=== PATIENT | female | born 1975 | race Caucasian/White ===

== ENCOUNTER 2018-04-02 20:36 | Emergency (ER) | payer OTHER ==
[~2018-04-02] VITALS: Ht 170.2 cm; Wt 117.9 kg
[~2018-04-02 20:36] MED LIST: ACET-8386 PO; CEPH250C16 PO; GLYB5TAB14 PO; LEVEMIR SC; METF10002 PO; [UNRECOGNIZED DRUG - CODE] PO
--- NOTE | 2018-04-02 20:36 | NUR ---
PT BIBA BLS TO ER BED 03
[2018-04-02 20:42] VITALS: BP 128/87
[2018-04-02 20:59] LABS: APPEARANCE,URINE SL CLOUDY (CLEAR); BILIRUBIN,URINE NEGATIVE (NEGATIVE); BLOOD, URINE NEGATIVE (NEGATIVE); COLOR,URINE YELLOW (YELLOW); LEUKOCYTE ESTERASE ,URINE 1+ (NEGATIVE); NITRITE, URINE NEGATIVE (NEGATIVE); UGLUCOSE 1+ (NEGATIVE)
[2018-04-02] MEDS ORDERED: NACL 0.9% 1,000 ML IV ONE (21:00)
[2018-04-02] MEDS ORDERED: KETOROLAC 30 MG/ML VIAL IVP ONE (21:00)
[2018-04-02 21:02] LABS: RBC,URINE 0-5 (RARE) /HPF (0-5); WBC,URINE 16-25 (MOD) /HPF (0-5)
--- NOTE | 2018-04-02 21:13 | NUR ---
42Y/M BIBA C/O LOWER BACK PAIN OF SUDDEN ONSET STARTING YESTERDAY AM. PT IS TEARFUL UPON ARRIVAL, DENIES TRAUMA TO AFFECTED AREA. PAIN 10/10 NON RADIATING, TO LOWER ABD. PT IS ABLE TO AMBULATE STEADY GAIT. ABD IS ROUND, SOFT, NON TENDER, ACTIVE BS X4. PMH DM ALLERGY TO CODEINE, MORPHINE.
[2018-04-02 21:24] LABS: BASOPHILS # (AUTO) 0.1 K/uL (0.00-0.22); BASOPHILS % (AUTO) 0.8 % (0.0-2.0); EOSINOPHILS # (AUTO) 0.2 K/uL (0-0.4); EOSINOPHILS % (AUTO) 3.6 % (0.0-4.0); HEMATOCRIT 34.3 % (36-48); HEMOGLOBIN 11.6 g/dL (12.0-16.0); LYMPHOCYTES # (AUTO) 2.2 K/uL (2.5-16.5); LYMPHOCYTES % (AUTO) 32.5 % (20.5-51.1); MEAN CORPUSCULAR HEMOGLOBIN 30 pg (27-31); MEAN CORPUSCULAR HGB CONC 34 g/dL (33-37); MEAN CORPUSCULAR VOLUME 87.4 fL (80-94); MONOCYTES # (AUTO) 0.4 K/uL (0.8-1.0); MONOCYTES % (AUTO) 5.7 % (1.7-9.3); NEUTROPHILS # (AUTO) 3.8 K/uL (1.8-7.7); NEUTROPHILS % (AUTO) 57.4 % (42.2-75.2); PLATELET COUNT (AUTO) 195 K/uL (140-450); RED BLOOD CELL COUNT(AUTO) 3.92 MIL/uL (4.20-5.40); RED CELL DISTRIBUTION WIDTH 13.3 % (11.6-13.7); WHITE BLOOD COUNT (AUTO) 6.6 K/uL (4.8-10.8)
[2018-04-02 21:36] LABS: ALBUMIN 2.8 g/dL (3.4-5.0); ANION GAP 11.9 (8-16); CARBON DIOXIDE 29.8 mmol/L (21-32); CREATININE 0.7 mg/dL (0.6-1.3); POTASSIUM 3.7 mmol/L (3.5-5.1); TOTAL BILIRUBIN 0.5 mg/dL (0.0-1.0)
[2018-04-02] MEDS ORDERED: LEVOFLOXACIN 500 MG/D5W PREMIX 100 ML IV ONE (21:45)
--- NOTE | 2018-04-02 22:30 | NUR ---
PT IN BED RESTING, VSS, LEVAQUIN RUNNING PT NADR AT THIS TIME.
[2018-04-02] MEDS ORDERED: ACETAMINOPHEN 325 MG TAB ONE (23:07)
--- NOTE | 2018-04-02 23:35 | NUR ---
Patient discharged with v/s stable. Written and verbal after care instructions given and explained. Patient alert, oriented and verbalized understanding of instructions. Ambulatory with steady gait. All questions addressed prior to discharge. ID band removed. Patient advised to follow up with PMD. Rx of MACROBID, MOTRIN given. Patient educated on indication of medication including possible reaction and side effects. Opportunity to ask questions provided and answered.
[2018-04-02 23:51] VITALS: BP 112/77
== END 2018-04-02 23:35 | disposition home or self-care (01) ==
LOC: MED 20:36
DX: N39.0 Urinary tract infection, site not specified (principal); E11.9 Type 2 diabetes mellitus without complications; I10 Essential (primary) hypertension; Z88.5 Allergy status to narcotic agent
CPT/HCPCS: 36415; 80053; 81001; 81025; 85025; 87086; 96361; 96365; 96375; 99284; J1885; J1956

== ENCOUNTER 2019-04-02 11:18 | Emergency (ER) | payer MEDICAID, OTHER ==
[~2019-04-02] VITALS: Ht 170.2 cm; Wt 117.0 kg
[~2019-04-02 11:18] MED LIST changes: +METF-1022 PO; -METF10002 PO
[2019-04-02 11:25] VITALS: BP 132/86
--- NOTE | 2019-04-02 11:38 | NUR ---
Patient ambulated to bed 5 with family. RN evaluating patient at bedside.
--- NOTE | 2019-04-02 11:47 | NUR ---
Dr. Herbert evaluating patient at bedside.
[2019-04-02] MEDS ORDERED: NACL 0.9% 1,000 ML IV ONE (11:55)
[2019-04-02] MEDS ORDERED: KETOROLAC 15 MG/ML VIAL IVP ONE (11:55)
--- NOTE | 2019-04-02 12:02 | NUR ---
C/O HIGH BLOOD SUGAR, FAINTING, AND VAGINAL IRRITATION. PT STATES HER PURSE WAS STOLEN WITH ALL HER MEDICATION AND SUPPLIES. PT STATES SHE FAINTED THIS MORNING DUE TO HER BLOOD SUGAR. ACCUCHECK AT TIME OF TRIAGE 239. VAGINAL DISCHARGE REPORTED THICK MUCUS. PAIN 10/10 HEAD AND VAGINAL AREA. HX: DIABETES, HTN, UMBILICAL HERNIA
--- NOTE | 2019-04-02 12:18 | NUR ---
orthopedic technician at bedside.
--- NOTE | 2019-04-02 12:57 | NUR ---
Justus transferred to bed 8 for further care. RN re-evaluating patient at bedside.
[2019-04-02 13:07] LABS: BILIRUBIN,URINE 1+ (NEGATIVE); BLOOD, URINE NEGATIVE (NEGATIVE); COLOR,URINE YELLOW (YELLOW); LEUKOCYTE ESTERASE ,URINE TRACE (NEGATIVE); NITRITE, URINE POSITIVE (NEGATIVE); UGLUCOSE 1+ (NEGATIVE)
[2019-04-02 13:12] LABS: APPEARANCE,URINE SLIGHTLY HAZY (CLEAR); BASOPHILS # (AUTO) 0.1 K/uL (0.00-0.22); BASOPHILS % (AUTO) 0.7 % (0.0-2.0); EOSINOPHILS # (AUTO) 0.2 K/uL (0-0.4); EOSINOPHILS % (AUTO) 2.3 % (0.0-4.0); HEMATOCRIT 38.1 % (36-48); LYMPHOCYTES # (AUTO) 2.2 K/uL (2.5-16.5); LYMPHOCYTES % (AUTO) 30.3 % (20.5-51.1); MEAN CORPUSCULAR HEMOGLOBIN 30 pg (27-31); MEAN CORPUSCULAR HGB CONC 34 g/dL (33-37); MEAN CORPUSCULAR VOLUME 87.7 fL (80-94); MONOCYTES # (AUTO) 0.6 K/uL (0.8-1.0); MONOCYTES % (AUTO) 7.7 % (1.7-9.3); NEUTROPHILS # (AUTO) 4.4 K/uL (1.8-7.7); PLATELET COUNT (AUTO) 230 K/uL (140-450); RED BLOOD CELL COUNT(AUTO) 4.34 MIL/uL (4.20-5.40); RED CELL DISTRIBUTION WIDTH 14.6 % (11.6-13.7); WHITE BLOOD COUNT (AUTO) 7.4 K/uL (4.8-10.8)
[2019-04-02 13:13] LABS: ANION GAP 12.7 (8-16); CARBON DIOXIDE 26.1 mmol/L (21-32); CREATININE 0.6 mg/dL (0.6-1.3); POTASSIUM 3.8 mmol/L (3.5-5.1)
[2019-04-02 13:14] LABS: RBC,URINE 0-5 /HPF (0-5); WBC,URINE 0-5 /HPF (0-5)
[2019-04-02 13:19] LABS: ALBUMIN 3.3 g/dL (3.4-5.0)
[2019-04-02 16:10] VITALS: BP 143/110
--- NOTE | 2019-04-02 16:20 | NUR ---
Patient discharged with v/s stable. Written and verbal after care instructions given and explained. Patient alert, oriented and verbalized understanding of instructions. Ambulatory with steady gait. All questions addressed prior to discharge. ID band removed. Patient advised to follow up with PMD. Rx of Humalog, clotrimazole, Metformin and Diflucan given. Patient educated on indication of medication including possible reaction and side effects. Opportunity to ask questions provided and answered.
== END 2019-04-02 16:20 | disposition home or self-care (01) ==
LOC: MED 11:18
DX: S30.0XXA Contusion of lower back and pelvis, initial encounter (principal); S00.03XA Contusion of scalp, initial encounter; E11.65 Type 2 diabetes mellitus with hyperglycemia; B37.3 Candidiasis of vulva and vagina; N76.0 Acute vaginitis; I10 Essential (primary) hypertension; F17.210 Nicotine dependence, cigarettes, uncomplicated; Z88.5 Allergy status to narcotic agent; Z79.4 Long term (current) use of insulin; Z79.899 Other long term (current) drug therapy; W18.30XA Fall on same level, unspecified, initial encounter; Y93.89 Activity, other specified; Y92.89 Other specified places as the place of occurrence of the external cause; Y99.8 Other external cause status
CPT/HCPCS: 36415; 71045; 80053; 81001; 81025; 83036; 84484; 85025; 87086; 87186; 93005; 96374; 99284; J1885; J7030; Q0092

== ENCOUNTER 2019-04-13 15:27 | Emergency (ER) | payer MEDICAID ==
[~2019-04-13] VITALS: Ht 170.2 cm; Wt 113.4 kg
[2019-04-13 15:33] VITALS: BP 135/85
--- NOTE | 2019-04-13 15:52 | NUR ---
PT BIBA C/O N/V/D SINCE EATING [employer]BIAN FOOR LAST NIGHT. PT REPORTS PAIN IN LOWER BACK FROM FALL SHE HAD 2 WEEKS AGO, CAME INTO ER FOR FALL. PT ALSO REPORTS HEADACHE AT 8/10. PT ADMITS TO METH USE YESTERDAY. DENIES FEVER. MEDHX:HTN, DM
--- NOTE | 2019-04-13 17:04 | NUR ---
PT RESTING IN BED, FRIEND IS AT BEDSIDE, PT DENIES PAIN AT THIS TIME. VSS
--- NOTE | 2019-04-13 18:23 | NUR ---
PT RESTING IN BED, PT REPORTS PAIN AT 6/10 IN LOWER BACK
[2019-04-13] MEDS ORDERED: DICYCLOMINE HCL LIQUID 10 MG/5 ML UDC PO ONE (18:50)
[2019-04-13 19:15] VITALS: BP 105/77
--- NOTE | 2019-04-13 19:16 | NUR ---
Patient discharged with v/s stable. Written and verbal after care instructions given and explained. Patient alert, oriented and verbalized understanding of instructions. Ambulatory with steady gait. All questions addressed prior to discharge. ID band removed. Patient advised to follow up with PMD. Rx of BENTYL given. Patient educated on indication of medication including possible reaction and side effects. Opportunity to ask questions provided and answered.
== END 2019-04-13 19:16 | disposition home or self-care (01) ==
LOC: MED 15:27
DX: B34.9 Viral infection, unspecified (principal); E11.9 Type 2 diabetes mellitus without complications; I10 Essential (primary) hypertension; Z79.4 Long term (current) use of insulin; Z79.899 Other long term (current) drug therapy; Z88.5 Allergy status to narcotic agent
CPT/HCPCS: 81002; 81025; 99283